=== PATIENT | female | born 1990 | race Caucasian/White ===

== ENCOUNTER 2016-08-05 07:13 | Inpatient (IN) | payer SELFPAY ==
[~2016-08-05] VITALS: Ht 165 cm; Wt 68.0 kg
[2016-08-05] MEDS ORDERED: PREN-380 PO (07:44)
[2016-08-05] MEDS ORDERED: AMPICILLIN 2,000 MG in NACL 0.9% MINI-BAG PLUS 100 ML IV SCH (07:45)
[2016-08-05] MEDS ORDERED: OXYTOCIN 10 UNITS/ML VIAL IM SCH (07:45)
[2016-08-05] MEDS ORDERED: METHYLERGONOVINE 0.2 MG/ML AMP IM PRN (07:45)
[2016-08-05] MEDS ORDERED: NALBUPHINE HYDROCHLORIDE 10 MG/ML VIAL IVP PRN (07:45)
[2016-08-05] MEDS ORDERED: PROMETHAZINE 25 MG/ML VIAL IVP PRN (07:45)
[2016-08-05] MEDS ORDERED: CARBOPROST 250 MCG/ML AMP IM PRN (07:45)
[2016-08-05] MEDS: LACTATED RINGERS 1,000 ML IV SCH ×2 (08:19→10:34)
[2016-08-05] MEDS ORDERED: AMPICILLIN 2,000 MG VIAL ONE (08:27)
[2016-08-05 08:40] LABS: HEMOGLOBIN 12.3 g/dL (12.0-16.0); MEAN CORPUSCULAR HEMOGLOBIN 30 pg (27-31); MEAN CORPUSCULAR HGB CONC 34 g/dL (33-37); MEAN CORPUSCULAR VOLUME 89 fL (80-94); PLATELET COUNT (AUTO) 176 K/uL (140-450); RED BLOOD CELL COUNT(AUTO) 4.06 MIL/uL (4.20-5.40); RED CELL DISTRIBUTION WIDTH 12.9 % (11.6-13.7); WHITE BLOOD COUNT (AUTO) 11.7 K/uL (4.8-10.8)
[2016-08-05] MEDS ORDERED: NALBUPHINE HYDROCHLORIDE 10 MG/ML VIAL ONE (08:44)
[2016-08-05 08:57] LABS: APPEARANCE,URINE SL CLOUDY (CLEAR); BILIRUBIN,URINE NEGATIVE (NEGATIVE); BLOOD, URINE TRACE-I (NEGATIVE); COLOR,URINE YELLOW (YELLOW); LEUKOCYTE ESTERASE ,URINE NEGATIVE (NEGATIVE); NITRITE, URINE NEGATIVE (NEGATIVE); PROTEIN,URINE NEGATIVE (NEGATIVE); UGLUCOSE NEGATIVE (NEGATIVE); UROBILINOGEN,URINE 0.2 EU/dL (0.2 - 1)
[2016-08-05 08:59] VITALS: BP 120/80
--- NOTE | 2016-08-05 09:00 | NUR ---
PATIENT HAS BEEN SCREENED AND CATEGORIZED LOW NUTRITION RISK. PATIENT WILL BE SEEN WITHIN 7 DAYS OF ADMISSION. 08/11/[address]
[2016-08-05 09:33] LABS: RAPID PLASMA REAGIN NON-REACTIVE (Non Reactiv)
[2016-08-05 09:42] LABS: NEUTROPHILS % (MANUAL) 71 (43-65)
[2016-08-05 09:43] LABS: BAND % (MANUAL) 2 % (0-8); EOSINOPHILS % (MANUAL) 4 % (0-4); LYMPHOCYTES % (MANUAL) 15 % (20-46); MONOCYTES % (MANUAL) 8 % (5-12)
[2016-08-05 09:44] LABS: HIV RAPID SCREEN NON-REACTIVE (NON REACTIV); PLATELET ESTIMATE ADEQUATE
[2016-08-05 09:55] LABS: BACTERIA,URINE OCCASSIONAL /HPF (None Seen); MUCUS,URINE 1+ /LPF (None Seen); RBC,URINE 0-2 /HPF (0-5); SQUAMOUS EPITHELIAL CELL,UR 4-10 (MOD) /LPF (0-3 (FEW)); WBC,URINE 0-2 /HPF (0-5)
[2016-08-05] MEDS ORDERED: BUPIVACAINE 0.125%/NS PREMIX 250 ML ONE (10:34)
[2016-08-05] MEDS ORDERED: OXYTOCIN 20 UNITS/LR PREMIX 1,000 ML IV ONE (11:27)
[2016-08-05] MEDS ORDERED: AMPICILLIN 1,000 MG in NACL 0.9% MINI-BAG PLUS 50 ML IV SCH (12:00)
[2016-08-05] MEDS ORDERED: AMPICILLIN 1,000 MG VIAL ONE ×2 (12:19→16:29)
[2016-08-05] MEDS ORDERED: OXYTOCIN 20 UNITS/LR PREMIX 1,000 ML IV SCH (16:00)
[2016-08-05] MEDS ORDERED: OXYTOCIN 10 UNITS/ML VIAL ONE (16:50)
[2016-08-06] MEDS ORDERED: BISACODYL 5 MG TABEC PO PRN (05:10)
[2016-08-06] MEDS ORDERED: oxyCODONE/APAP 5/325 MG 1 TAB TAB PO PRN (05:10)
[2016-08-06] MEDS ORDERED: MEASLES, MUMPS, AND RUBELLA 1 VIAL SQVAC PRN (05:10)
[2016-08-06] MEDS ORDERED: ACETAMINOPHEN 325 MG TAB PO PRN (05:10)
[2016-08-06] MEDS ORDERED: SODIUM PHOSPHATE 118 ML ENEM RC PRN (05:10)
[2016-08-06] MEDS ORDERED: DOCUSATE SODIUM 100 MG GELCAP PO PRN (05:10)
[2016-08-06 08:11] LABS: HEMATOCRIT 37.5 % (36-48); HEMOGLOBIN 12.5 g/dL (12.0-16.0); MEAN CORPUSCULAR HEMOGLOBIN 30 pg (27-31); MEAN CORPUSCULAR HGB CONC 33 g/dL (33-37); MEAN CORPUSCULAR VOLUME 91 fL (80-94); PLATELET COUNT (AUTO) 159 K/uL (140-450); RED BLOOD CELL COUNT(AUTO) 4.12 MIL/uL (4.20-5.40); RED CELL DISTRIBUTION WIDTH 12.9 % (11.6-13.7); WHITE BLOOD COUNT (AUTO) 18.4 K/uL (4.8-10.8)
[2016-08-06 09:03] LABS: BAND % (MANUAL) 5 % (0-8); LYMPHOCYTES % (MANUAL) 8 % (20-46); MONOCYTES % (MANUAL) 7 % (5-12); NEUTROPHILS % (MANUAL) 80 (43-65); PLATELET ESTIMATE ADEQUATE
[2016-08-07] MEDS ORDERED: ACET-9800 PO (14:07)
[2016-08-07] MEDS ORDERED: FERR325E14 PO (14:08)
== END 2016-08-07 14:35 | disposition home or self-care (01) | DRG 775 ==
LOC: MLD 07:13 → MFCC 08-06 00:38
PROVIDERS: ADMIT Obstetrics & Gynecology; ATTEND Obstetrics & Gynecology
PROC: 10E0XZZ Delivery of Products of Conception, External Approach (ICD-10-PCS; principal; 2016-08-05)
PROC: 00HU33Z Insertion of Infusion Device into Spinal Canal, Percutaneous Approach (ICD-10-PCS; 2016-08-05)
PROC: 3E0R3CZ (ICD-10-PCS; 2016-08-05)
DX: O69.1XX0 Labor and delivery complicated by cord around neck, with compression, not applicable or unspecified (principal); O42.92 Full-term premature rupture of membranes, unspecified as to length of time between rupture and onset of labor; Z37.0 Single live birth; Z3A.37 37 weeks gestation of pregnancy; Z28.21 Immunization not carried out because of patient refusal
CPT/HCPCS: 36415; 51702; 59409; 81001; 85025; 86592; 86886; 86900; 86901; 87653-90; J0290; J2300; J2590; J3490; J7120

== ENCOUNTER 2021-02-04 18:11 | Inpatient (IN) | payer SELFPAY ==
[~2021-02-04] VITALS: Ht 167.6 cm; Wt 90.7 kg
[~2021-02-04 18:11] MED LIST: ACET-9800 PO; FERR325E14 PO; PREN-380 PO
[2021-02-04 19:01] VITALS: BP 117/70
[2021-02-04] MEDS ORDERED: OXYTOCIN 20 UNITS in LACTATED RINGERS 1,000 ML IV SCH (19:10)
[2021-02-04] MEDS ORDERED: ONDANSETRON 4 MG/2 ML VIAL IVP PRN (19:10)
[2021-02-04] MEDS ORDERED: MORPHINE SULFATE 2 MG/ML SYR IVP PRN (19:10)
[2021-02-04] MEDS ORDERED: NALBUPHINE 10 MG/ML AMP IVP PRN (19:10)
[2021-02-04] MEDS: LACTATED RINGERS 1,000 ML IV SCH (19:26)
[2021-02-04] MEDS ORDERED: MISOPROSTOL 25 MCG TAB VG ONE (19:30)
[2021-02-04 19:56] LABS: BASOPHILS % (AUTO) 0.3 % (0.0-2.0); EOSINOPHILS # (AUTO) 0.1 K/uL (0-0.4); EOSINOPHILS % (AUTO) 0.6 % (0.0-4.0); HEMATOCRIT 37.3 % (36-48); HEMOGLOBIN 12.8 g/dL (12.0-16.0); LYMPHOCYTES % (AUTO) 21.2 % (20.5-51.1); MEAN CORPUSCULAR HEMOGLOBIN 30 pg (27-31); MEAN CORPUSCULAR HGB CONC 34 g/dL (33-37); MEAN CORPUSCULAR VOLUME 87.1 fL (80-94); MONOCYTES # (AUTO) 0.8 K/uL (0.8-1.0); MONOCYTES % (AUTO) 8.2 % (1.7-9.3); NEUTROPHILS # (AUTO) 6.4 K/uL (1.8-7.7); NEUTROPHILS % (AUTO) 69.7 % (42.2-75.2); PLATELET COUNT (AUTO) 182 K/uL (140-450); RED BLOOD CELL COUNT(AUTO) 4.28 MIL/uL (4.20-5.40); RED CELL DISTRIBUTION WIDTH 13.9 % (11.6-13.7); WHITE BLOOD COUNT (AUTO) 9.2 K/uL (4.8-10.8)
[2021-02-04] MEDS ORDERED: MISOPROSTOL 25 MCG TAB ONE (19:56)
[2021-02-04 19:57] LABS: APPEARANCE,URINE CLEAR (CLEAR); BILIRUBIN,URINE NEGATIVE (NEGATIVE); BLOOD, URINE 2+ (NEGATIVE); COLOR,URINE YELLOW (YELLOW); LEUKOCYTE ESTERASE ,URINE NEGATIVE (NEGATIVE); NITRITE, URINE NEGATIVE (NEGATIVE); UGLUCOSE NEGATIVE (NEGATIVE)
[2021-02-04 20:14] LABS: RBC,URINE 0-5 /HPF (0-5); WBC,URINE 0-5 /HPF (0-5)
[2021-02-04 22:32] LABS: ALBUMIN 2.4 g/dL (3.4-5.0); ANION GAP 13.6 (8-16); CARBON DIOXIDE 26.5 mmol/L (21-32); CREATININE 0.6 mg/dL (0.6-1.3); POTASSIUM 4.1 mmol/L (3.5-5.1); TOTAL BILIRUBIN 0.2 mg/dL (0.0-1.0)
[2021-02-05] MEDS ORDERED: ROPIVACAINE 0.2%/NS PREMIX 200 ML EPI ONE (01:10)
[2021-02-05] MEDS ORDERED: ROPIVACAINE 0.2%/NS PREMIX 100 ML EPI SCH (01:40)
[2021-02-05] MEDS: LACTATED RINGERS 1,000 ML IV SCH (02:27)
[2021-02-05] MEDS ORDERED: OXYTOCIN 20 UNITS/LR PREMIX 1,000 ML IV ONE (04:16)
[2021-02-05] MEDS ORDERED: LIDOCAINE 1% 500 MG/50 ML VIAL ONE (04:17)
[2021-02-05] MEDS ORDERED: OXYTOCIN 10 UNITS/ML VIAL ONE ×2 (06:10)
[2021-02-05] MEDS ORDERED: DOCUSATE SODIUM 100 MG GELCAP PO PRN (09:30)
[2021-02-05] MEDS ORDERED: OXYTOCIN 20 UNITS in LACTATED RINGERS 1,000 ML IV SCH (09:30)
[2021-02-05] MEDS ORDERED: bisacodyL 5 MG TABEC PO PRN (09:30)
[2021-02-05] MEDS ORDERED: MEASLES, MUMPS, AND RUBELLA 1 VIAL SQVAC ONE (09:30)
--- NOTE | 2021-02-05 14:13 | NUR ---
PATIENT HAS BEEN SCREENED AND CATEGORIZED LOW NUTRITION RISK. PATIENT WILL BE SEEN WITHIN 7 DAYS OF ADMISSION. 02/11/[address]
[2021-02-05] MEDS: IBUPROFEN 600 MG TAB PO PRN (15:04)
[2021-02-05] MEDS: ACETAMINOPHEN 325 MG TAB PO PRN (22:13)
[2021-02-06] MEDS: IBUPROFEN 600 MG TAB PO PRN (03:07)
[2021-02-06 08:42] LABS: BASOPHILS % (AUTO) 0.2 % (0.0-2.0); EOSINOPHILS % (AUTO) 0.4 % (0.0-4.0); HEMATOCRIT 35.2 % (36-48); HEMOGLOBIN 12.2 g/dL (12.0-16.0); LYMPHOCYTES # (AUTO) 0.9 K/uL (2.5-16.5); MEAN CORPUSCULAR HEMOGLOBIN 30 pg (27-31); MEAN CORPUSCULAR HGB CONC 35 g/dL (33-37); MEAN CORPUSCULAR VOLUME 87.8 fL (80-94); MONOCYTES # (AUTO) 0.8 K/uL (0.8-1.0); MONOCYTES % (AUTO) 9.7 % (1.7-9.3); NEUTROPHILS # (AUTO) 6.7 K/uL (1.8-7.7); NEUTROPHILS % (AUTO) 78.7 % (42.2-75.2); PLATELET COUNT (AUTO) 153 K/uL (140-450); RED BLOOD CELL COUNT(AUTO) 4.01 MIL/uL (4.20-5.40); RED CELL DISTRIBUTION WIDTH 14.1 % (11.6-13.7); WHITE BLOOD COUNT (AUTO) 8.5 K/uL (4.8-10.8)
[2021-02-06] MEDS: ACETAMINOPHEN 325 MG TAB PO PRN (12:00)
== END 2021-02-06 16:35 | disposition home or self-care (01) | DRG 805 ==
LOC: MLD 18:11 → MFCC 02-05 09:25
PROVIDERS: ADMIT Obstetrics & Gynecology; ATTEND Obstetrics & Gynecology
PROC: 10E0XZZ Delivery of Products of Conception, External Approach (ICD-10-PCS; principal; 2021-02-05)
PROC: 3E0P7VZ Introduction of Hormone into Female Reproductive, Via Natural or Artificial Opening (ICD-10-PCS; 2021-02-05)
PROC: 10907ZC Drainage of Amniotic Fluid, Therapeutic from Products of Conception, Via Natural or Artificial Opening (ICD-10-PCS; 2021-02-05)
PROC: 3E0R3BZ Introduction of Anesthetic Agent into Spinal Canal, Percutaneous Approach (ICD-10-PCS; 2021-02-05)
PROC: 00HU33Z Insertion of Infusion Device into Spinal Canal, Percutaneous Approach (ICD-10-PCS; 2021-02-05)
PROC: 10H07YZ Insertion of Other Device into Products of Conception, Via Natural or Artificial Opening (ICD-10-PCS; 2021-02-05)
DX: O98.52 Other viral diseases complicating childbirth (principal); U07.1 COVID-19; Z37.0 Single live birth; Z3A.39 39 weeks gestation of pregnancy
CPT/HCPCS: 36415; 51702; 59200; 59409; 80053; 81001; 85025; 86592; 86886; 86900; 86901; 87086; 90715; J2001; J2590; J2795; J7120